=== PATIENT | male | born 1950 | race Caucasian/White ===

== ENCOUNTER → 2021-06-21 | Outpatient (REF) | payer BC ==
[2021-06-21 17:22] LABS: RHEUMATOID FACTOR QUANT < 10.0 IU/ML (<15.0)
[2021-06-21 17:46] LABS: HEPATITIS B SURFACE ANTIGEN NEGATIVE (NEGATIVE)
[2021-06-21 18:14] LABS: HEPATITIS B CORE ANTIBODY IGM NEGATIVE (NEGATIVE); HEPATITIS C VIRUS ABY INDEX < 0.0 INDEX (<0.8)
== END ==
LOC: M LAB REF 16:31
PROVIDERS: ATTEND Nurse Practitioner Adult Health
DX: M25.50 Pain in unspecified joint (principal)

== ENCOUNTER → 2021-06-22 | Outpatient (CLI) | payer BC, MEDICARE ==
--- NOTE | 2021-06-22 12:34 | REP ---
INDICATION: PAIN. COMPARISON: None TECHNIQUE: AP and frog-lateral views FINDINGS: There is moderate asymmetric hip joint space narrowing without evidence of an acute fracture, dislocation, or subluxation. There is no tamar buttressing. There is mild femoral head and acetabular subchondral sclerosis without evidence of subchondral cyst formation. Seen only on the frog-lateral view there is evidence of slightly irregular periosteal thickening involving the proximal femoral diaphysis. IMPRESSION: 1. Limited evaluation of suspected periosteal thickening as described above. Further investigation with MRI is warranted. 2. Chronic changes as described above. <Electronically signed by Dariusz Cat > 06/22/21 [id number]
== END ==
LOC: M WUC 09:41
PROVIDERS: ATTEND Nurse Practitioner Adult Health
DX: M25.552 Pain in left hip (principal)

== ENCOUNTER → 2021-07-08 | Outpatient (CLI) | payer MEDICARE ==
--- NOTE | 2021-07-08 15:43 | REP ---
INDICATION: LT HIP PAIN. COMPARISON: Prior plain film examination of the left hip obtained 06/22/2021 showed a suspected area of periosteal thickening approximately 25 cm distal to the femoral head. TECHNIQUE: Axial T1 and T2. Sagittal T2. Coronal T1, fat suppressed proton density, fat suppressed T2 and STIR. The area of interest seen on the prior plain film examination in the proximal left femur was not imaged on today's hip MRI. FINDINGS: There is bilateral asymmetric hip joint space narrowing which is moderate to severe right greater than left. There is bilateral femoral head marginal osteophytosis right greater than left. There are small bilateral hip joint effusions. There is subchondral T2 hyper signal in the left femoral head and acetabulum bilaterally. There is T2 hyper signal seen within the obturator externus, adductor brevis, and quadratus femoris muscles and particularly in the upper [employer] externus. T2 hyper signal is also seen within the ileo psoas muscle. There is fluid deep to the iliofemoral ligament. Patchy T2 hyper signal is seen on both sides of the sacroiliac joints right greater than left. IMPRESSION: 1. 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 2. Bilateral hip degenerative changes and bilateral joint effusions as described above. 3. Bilateral subchondral edema due to degenerative changes as described above. 4. The area of interest seen on the plain film examination of 06/22/2021 was not imaged on this hip MRI. MRI of the left femur should be obtained <Electronically signed by Dariusz Cat > 07/08/21 [id number]
== END ==
LOC: M PLARAD 14:09
PROVIDERS: ATTEND Nurse Practitioner Adult Health
DX: M16.12 Unilateral primary osteoarthritis, left hip (principal)

== ENCOUNTER → 2022-01-25 | Outpatient (REF) | payer MEDICARE ==
[2022-01-25 13:32] LABS: APPEARANCE, URINE CLEAR (CLEAR); BACTERIA, URINE AUTO NEGATIVE (NEGATIVE); BILIRUBIN, URINE AUTO NEGATIVE (NEGATIVE); BLOOD, URINE BLOOD 1+ (NEGATIVE); COLOR, URINE YELLOW (YELLOW); GLUCOSE, URINE (UA) AUTO NEGATIVE (NEGATIVE); KETONE, URINE AUTO NEGATIVE (NEGATIVE); LEUKOCYTE ESTERASE, URINE AUTO NEGATIVE (NEGATIVE); MUCUS, URINE SMALL (NEGATIVE); NITRITE, URINE AUTO NEGATIVE (NEGATIVE); PROTEIN, URINE AUTO 1+ mg/dL (NEGATIVE); RBC, URINE AUTO 0 /HPF (0-3); SPECIFIC GRAVITY URINE AUTO 1.024 (1.002-1.035); SQUAMOUS EPITHELIAL CELL UR AU 0 /HPF (0-6); UROBILINOGEN, URINE AUTO 0.2 mg/dL (0.0-2.0); WBC, URINE AUTO 0 /HPF (0-3)
[2022-01-25 13:33] LABS: INR 0.91; PROTHROMBIN TIME 12.7 SECONDS (12.7-14.5)
[2022-01-25 13:34] LABS: PARTIAL THROMBOPLASTIN TIME 30.6 SECONDS (25.9-37.0)
[2022-01-25 14:07] LABS: PERCENT SATURATION 36.4 % (19.7-50.0)
== END ==
LOC: M LAB REF 12:57
PROVIDERS: ATTEND Internal Medicine
DX: Z01.818 Encounter for other preprocedural examination (principal); D50.9 Iron deficiency anemia, unspecified

== ENCOUNTER → 2023-05-07 | Outpatient (REF) | payer MEDICARE ==
[2023-05-07 13:51] LABS: BACTERIA, URINE AUTO NEGATIVE (NEGATIVE); RBC, URINE AUTO 7 /HPF (0-3); SQUAMOUS EPITHELIAL CELL UR AU 0 /HPF (0-6); WBC, URINE AUTO 22 /HPF (0-3)
[2023-05-07 15:47] LABS: APPEARANCE, URINE HAZY (CLEAR); BILIRUBIN, URINE AUTO NEGATIVE (NEGATIVE); BLOOD, URINE BLOOD 1+ (NEGATIVE); COLOR, URINE YELLOW (YELLOW); GLUCOSE, URINE (UA) AUTO NEGATIVE (NEGATIVE); KETONE, URINE AUTO NEGATIVE (NEGATIVE); LEUKOCYTE ESTERASE, URINE AUTO NEGATIVE (NEGATIVE); NITRITE, URINE AUTO NEGATIVE (NEGATIVE); PROTEIN, URINE AUTO NEGATIVE (NEGATIVE); SPECIFIC GRAVITY URINE AUTO 1.015 (1.002-1.035); UROBILINOGEN, URINE AUTO 0.2 mg/dL (0.0-2.0)
== END ==
LOC: M LAB REF 11:52
PROVIDERS: ATTEND Nurse Practitioner Adult Health
DX: Z01.818 Encounter for other preprocedural examination (principal)

== ENCOUNTER → 2023-06-27 | Outpatient (REF) | payer MEDICARE ==
[2023-06-27 17:30] LABS: APPEARANCE, URINE CLEAR (CLEAR); BACTERIA, URINE AUTO NEGATIVE (NEGATIVE); BILIRUBIN, URINE AUTO NEGATIVE (NEGATIVE); BLOOD, URINE BLOOD NEGATIVE (NEGATIVE); COLOR, URINE YELLOW (YELLOW); GLUCOSE, URINE (UA) AUTO NEGATIVE (NEGATIVE); KETONE, URINE AUTO NEGATIVE (NEGATIVE); LEUKOCYTE ESTERASE, URINE AUTO NEGATIVE (NEGATIVE); MUCUS, URINE SMALL (NEGATIVE); NITRITE, URINE AUTO NEGATIVE (NEGATIVE); PROTEIN, URINE AUTO NEGATIVE (NEGATIVE); RBC, URINE AUTO 1 /HPF (0-3); SPECIFIC GRAVITY URINE AUTO 1.017 (1.002-1.035); SQUAMOUS EPITHELIAL CELL UR AU 0 /HPF (0-6); UROBILINOGEN, URINE AUTO 0.2 mg/dL (0.0-2.0); WBC, URINE AUTO 1 /HPF (0-3)
== END ==
LOC: M LAB REF 16:19
PROVIDERS: ATTEND Nurse Practitioner Adult Health
DX: N50.89 Other specified disorders of the male genital organs (principal)

== ENCOUNTER → 2023-12-03 | Outpatient (REF) | payer MEDICARE ==
[2023-12-03 17:58] LABS: APPEARANCE, URINE CLEAR (CLEAR); BACTERIA, URINE AUTO NEGATIVE (NEGATIVE); BILIRUBIN, URINE AUTO NEGATIVE (NEGATIVE); BLOOD, URINE BLOOD NEGATIVE (NEGATIVE); COLOR, URINE YELLOW (YELLOW); GLUCOSE, URINE (UA) AUTO NEGATIVE (NEGATIVE); KETONE, URINE AUTO NEGATIVE (NEGATIVE); LEUKOCYTE ESTERASE, URINE AUTO NEGATIVE (NEGATIVE); NITRITE, URINE AUTO NEGATIVE (NEGATIVE); PROTEIN, URINE AUTO 1+ mg/dL (NEGATIVE); RBC, URINE AUTO 1 /HPF (0-3); SPECIFIC GRAVITY URINE AUTO 1.017 (1.002-1.035); SQUAMOUS EPITHELIAL CELL UR AU 0 /HPF (0-6); UROBILINOGEN, URINE AUTO 0.2 mg/dL (0.0-2.0); WBC, URINE AUTO 1 /HPF (0-3)
== END ==
LOC: M SMT 17:10
PROVIDERS: ATTEND Nurse Practitioner Family
DX: R31.29 Other microscopic hematuria (principal)

== ENCOUNTER → 2023-12-04 | Outpatient (CLI) | payer MEDICARE | LOC: M PLALAB 10:04 | PROVIDERS: ATTEND Nurse Practitioner Family | DX: Z12.5 Encounter for screening for malignant neoplasm of prostate (principal) | CPT/HCPCS: 36415; G0103 ==

== ENCOUNTER → 2024-12-15 | Outpatient (CLI) | payer MEDICARE | LOC: M WUC 11:14 | PROVIDERS: ATTEND Nurse Practitioner Adult Health | DX: R06.02 Shortness of breath (principal) ==